=== PATIENT | male | born 1935 | race Caucasian/White ===

== ENCOUNTER 2017-07-09 13:59 | Inpatient (IN) | payer MEDICARE, OTHER ==
[2017-07-09] MEDS: NovoLOG Insulin SQ SCH (18:16)
[2017-07-09] MEDS: Coumadin 2.5 MG PO SCH (18:16)
[2017-07-09] MEDS: Flomax 0.4 MG PO SCH (21:54)
[2017-07-09] MEDS: Lopressor 25MG Tab PO SCH (21:55)
[2017-07-09] MEDS: Cordarone 200 MG PO SCH (21:55)
[2017-07-09] MEDS: Pepcid 20 MG PO SCH (21:55)
[2017-07-10] MEDS: NORCO 7.5/325 MG TAB PO PRN ×3 (01:55→16:53)
[2017-07-10 05:55] LABS: INR 1.39 (0.8-3.0)
[2017-07-10] MEDS: NovoLOG Insulin SQ SCH ×3 (08:01→16:53)
[2017-07-10] MEDS: Lopressor 25MG Tab PO SCH ×2 (09:09→21:13)
[2017-07-10] MEDS: Pepcid 20 MG PO SCH ×2 (09:09→21:13)
[2017-07-10] MEDS: Cordarone 200 MG PO SCH ×2 (09:09→21:13)
[2017-07-10] MEDS: ZOCOR 20MG PO SCH (09:09)
[2017-07-10] MEDS: ECOTRIN 81 MG PO SCH (09:09)
[2017-07-10] MEDS: Flomax 0.4 MG PO SCH ×2 (09:09→21:13)
[2017-07-10] MEDS: Lantus Insulin SQ SCH (09:09)
[2017-07-10] MEDS: Zestril 10 MG PO SCH (09:09)
--- NOTE | 2017-07-10 09:39 | PCM.HP ---
History of Present Illness - Chief Complaint Chief Complaint: Deconditioning r/t CABG x4, left harvest leg. History of Present Illness: is a 81 year old male with CABG x 4 postop day #8 today here for rehab. pain is controlled, no chest pain or shortness of breath. He feels weak but otherwise has no other new complaints. - Review of Systems Constitutional: Weakness, No Fever, No Chills Respiratory: No Cough, No Short Of Breath Cardiac: No Chest Pain, No Edema, No Syncope Abdominal/Gastrointestinal: No Abdominal Pain, No Nausea, No Vomiting, No Diarrhea Genitourinary Symptoms: No Dysuria Skin: No Rash All Other Systems: Reviewed and Negative Medications & Allergies Home Medications: Home Medication List Lisinopril 10 mg [Zestril 10 MG] 10 mg PO DAILY 07/04/14 [History Confirmed 07/09/17] Ranitidine HCl [Zantac] 150 mg PO BID 07/04/14 [History Confirmed 07/09/17] Tamsulosin HCl 0.4 mg [Flomax 0.4 MG] 1 cap PO BID 07/04/14 [History Confirmed 07/09/17] Hydrocodone Bit/Acetaminophen [[place] 7.5-325 Tablet] 1 each PO Q4HPRN PRN #0 tablet 07/06/14 [Rx Confirmed 07/09/17] Aspirin [Aspirin EC] 81 mg PO DAILY 03/17/15 [History Confirmed 07/09/17] Amiodarone HCl 200 mg [Cordarone 200 MG] 200 mg PO BID 07/09/17 [History Confirmed 07/09/17] Atorvastatin Calcium [Lipitor] 40 mg PO DAILY 07/09/17 [History Confirmed ] Insulin Aspart [NovoLOG Insulin] 0 unit SQ UD PRN 07/09/17 [History Confirmed 07/09/17] Insulin Aspart [NovoLOG Insulin] 12 units SQ TIDWM 07/09/17 [History Confirmed 07/09/17] Insulin Detemir [Levemir] 35 unit SQ DAILY 07/09/17 [History Confirmed 07/09/17] Metoprolol Tartrate 25 mg [Lopressor 25MG Tab] 12.5 mg PO BID 07/09/17 [ History Confirmed 07/09/17] Warfarin Sodium 2.5 mg [Coumadin 2.5 MG] 2.5 mg PO DAILY 07/09/17 [ History Confirmed 07/09/17] Allergies/Adverse Reactions: Allergies Allergy/AdvReac Type Severity Reaction Status Date / Time No Known Drug Allergies Allergy Verified 03/17/15 06:57 - Past Medical History Past Medical History: Yes Neurological History: Peripheral Neuropathy ENT History: Cataracts, Other Cardiac History: Coronary Artery Disease, High Cholesterol, Hypertension Respiratory History: No Pertinent History Endocrine Medical History: Diabetes Type II Musculoskelatal History: Arthritis, Degenerative Disk Disease GI Medical History: Other History: No Pertinent History Pyscho-Social History: No Pertinent History Male Reproductive Disorders: Prostate Problems Comment: several detatched retina both eyes. hiatal hernia - Past Surgical History Past Surgical History: Yes Neuro Surgical History: No Pertinent History Cardiac History: Cardiac Catheterization Respiratory Surgery: No Pertinent History GI Surgical History: Hernia Repair Genitourinary Surgical Hx: No Pertinent History Musculskeletal Surgical Hx: Joint Replacement Male Surgical History: No Pertinent History Other Surgical History: Right hip replaced- june 2014. 1998 bilateral knee replaced. multiple eye surgerys. disc surgery neck and back surgery - Social History Smoking Status: Former smoker How long have you smoked: 30 Exposure to second hand smoke: Yes Alcohol: None Drug Use: none - Physical Exam Vital Signs: Vital Signs - 24 hr Temp Pulse Resp BP Pulse Ox 07/10/17 07:21 97.8 F 82 20 114/68 95 07/09/17 19:50 98.0 F 90 24 132/61 98 07/09/17 16:14 98.0 F 90 20 100/56 94 L 07/09/17 16:04 97.9 F 89 94/54 07/09/17 16:03 97.9 F 89 20 94/54 94 L 07/09/17 15:48 97.9 F 89 20 94/54 94 L General Appearance: no apparent distress, alert Eye Exam: PERRL/EOMI, eyes nml inspection Respiratory Exam: normal breath sounds, lungs clear, No respiratory distress Cardiovascular Exam: regular rate/rhythm, normal heart sounds, normal peripheral pulses, other (sternum with clean dressing dry and intact) Gastrointestinal/Abdomen Exam: soft, normal bowel sounds, No tenderness, No mass Extremity Exam: normal inspection, normal range of motion, pelvis stable Skin Exam: normal color, warm, dry, No rash Results - Labs Lab/Micro Results: Accuchecks Accucheck Value: 130 Lab Results-Last 24 Hours 07/10/17 Range/Units 05:15 PT 16.2 H (8.83-12.87) SECONDS INR 1.39 (0.8-3.0) Accuchecks Accucheck Value: 130 Assessment/Plan (1) Coronary atherosclerosis Current Visit: Yes Status: Acute Code(s): I25.10 - ATHSCL HEART DISEASE OF [place] CORONARY ARTERY W/O ANG PCTRS (2) Status post aorto-coronary artery bypass graft Current Visit: Yes Status: Acute Code(s): Z95.1 - PRESENCE OF AORTOCORONARY BYPASS GRAFT (3) Physical deconditioning Current Visit: No Status: Acute Code(s): R53.81 - OTHER MALAISE (4) SWING BED Current Visit: No Status: Acute
[2017-07-10] MEDS ORDERED: INSULIN DETEMIR 35 UNIT SQ SCH (10:00)
[2017-07-10] MEDS ORDERED: Aplisol ID SCH (10:00)
[2017-07-10] MEDS ORDERED: LIPITOR 40MG PO SCH (10:00)
[2017-07-10] MEDS: Coumadin 2.5 MG PO SCH (16:53)
[2017-07-11] MEDS: NovoLOG Insulin SQ SCH ×3 (07:49→17:32)
[2017-07-11] MEDS: Zestril 10 MG PO SCH (08:46)
[2017-07-11] MEDS: Flomax 0.4 MG PO SCH ×2 (08:46→21:35)
[2017-07-11] MEDS: Pepcid 20 MG PO SCH ×2 (08:46→21:35)
[2017-07-11] MEDS: ECOTRIN 81 MG PO SCH (08:46)
[2017-07-11] MEDS: Cordarone 200 MG PO SCH ×2 (08:46→21:35)
[2017-07-11] MEDS: Lopressor 25MG Tab PO SCH ×2 (08:46→21:35)
[2017-07-11] MEDS: ZOCOR 20MG PO SCH (08:47)
[2017-07-11] MEDS: Lantus Insulin SQ SCH (08:49)
[2017-07-11 10:13] LABS: INR 1.35 (0.8-3.0)
[2017-07-11] MEDS: Coumadin 2.5 MG PO SCH (17:24)
[2017-07-11] MEDS: NovoLOG Insulin SQ PRN (21:35)
[2017-07-12] MEDS: NORCO 7.5/325 MG TAB PO PRN (00:35)
[2017-07-12 06:26] LABS: INR 1.3 (0.8-3.0)
[2017-07-12] MEDS: NovoLOG Insulin SQ SCH ×2 (07:59→11:49)
--- NOTE | 2017-07-12 08:44 | PCM.NOTE ---
Date and Time: 07/12/17 0843 Subjective Assessment: patient is doing well, c/o some constipation. pain well controlled, no other problems or concerns. Objective Exam General Appearance: no apparent distress, alert Respiratory Exam: normal breath sounds, lungs clear, No respiratory distress Cardiovascular Exam: regular rate/rhythm, normal heart sounds Gastrointestinal/Abdomen Exam: soft, No tenderness, No mass Extremity Exam: normal inspection, normal range of motion OBJECTIVE DATA Vital Signs: Vital Signs - 24 hr Temp Pulse Resp BP Pulse Ox 07/12/17 08:00 98.6 F 80 18 124/60 93 L 07/11/17 20:02 97.7 F 80 26 H 157/73 97 Pain Assessment - Last Documented Pain Intensity 0 Pain Scale Used 0-10 Pain Scale Intake and Output: Intake & Output 07/09/17 07/10/17 07/11/17 07/12/17 11:59 11:59 11:59 11:59 Intake Total 1450 1860 1380 Output Total 9266 140 4306 Balance 150 1360 180 Weight 128.8 kg 128.9 kg 128.9 kg Lab Results: Accuchecks Accucheck Value: 151 Accucheck Value: 221 Accucheck Value: 99 Accucheck Value: 52 Accucheck Value: 128 Lab Results-Last 24 Hours 07/11/17 07/12/17 Range/Units 09:45 05:30 PT 15.8 H 15.2 H (8.83-12.87) SECONDS INR 1.35 1.30 (0.8-3.0) Multi-Disciplinary Progress Notes: Multi-Disciplinary Progress Notes 07/11/17 12:30 (created 07/11/17 13:34) Case Management Note by Octavia Pompa SPOKE WITH PATIENT REGARDING ANY NEW CONCERNS OR NEEDS AT THIS TIME. PATIENT DENIES ANY. 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 The INR today is 1.35. We recommend increasing the dose to 3mg daily, which is a 15% increase on the weekly dosage. There is also an interaction with amiodarone to be aware of. Martha CallD Candidate Initialized on 07/11/17 11:17 - END OF NOTE Assessment/Plan (1) Coronary atherosclerosis Current Visit: Yes Status: Acute Code(s): I25.10 - ATHSCL HEART DISEASE OF [place] CORONARY ARTERY W/O ANG PCTRS (2) Status post aorto-coronary artery bypass graft Current Visit: Yes Status: Acute Assessment & Plan: add colace, increase warfarin to 4mg daily Code(s): Z95.1 - PRESENCE OF AORTOCORONARY BYPASS GRAFT (3) Physical deconditioning Current Visit: No Status: Acute Code(s): R53.81 - OTHER MALAISE (4) SWING BED Current Visit: No Status: Acute
[2017-07-12] MEDS: ECOTRIN 81 MG PO SCH (11:42)
[2017-07-12] MEDS: Pepcid 20 MG PO SCH ×2 (11:42→22:06)
[2017-07-12] MEDS: Colace 100 MG PO SCH ×2 (11:42→22:05)
[2017-07-12] MEDS: ZOCOR 20MG PO SCH (11:42)
[2017-07-12] MEDS: Zestril 10 MG PO SCH (11:42)
[2017-07-12] MEDS: Flomax 0.4 MG PO SCH ×2 (11:42→22:05)
[2017-07-12] MEDS: Lopressor 25MG Tab PO SCH ×2 (11:43→22:06)
[2017-07-12] MEDS: Cordarone 200 MG PO SCH ×2 (11:43→22:06)
[2017-07-12] MEDS: Lantus Insulin SQ SCH (11:50)
[2017-07-12] MEDS ORDERED: Coumadin 3 MG PO SCH (18:00)
[2017-07-12] MEDS: Coumadin 2 MG PO SCH (18:16)
[2017-07-13] MEDS: Lopressor 25MG Tab PO SCH ×2 (09:26→21:54)
[2017-07-13] MEDS: Cordarone 200 MG PO SCH ×2 (09:26→21:55)
[2017-07-13] MEDS: PROZAC 10 MG PO SCH (09:26)
[2017-07-13] MEDS: Flomax 0.4 MG PO SCH ×2 (09:26→21:54)
[2017-07-13] MEDS: Pepcid 20 MG PO SCH ×2 (09:26→21:55)
[2017-07-13] MEDS: ZOCOR 20MG PO SCH (09:27)
[2017-07-13] MEDS: ECOTRIN 81 MG PO SCH (09:27)
[2017-07-13] MEDS: Colace 100 MG PO SCH ×2 (09:27→21:54)
[2017-07-13] MEDS: Zestril 10 MG PO SCH (09:27)
[2017-07-13] MEDS: Lantus Insulin SQ SCH (09:28)
[2017-07-13] MEDS ORDERED: PROZAC 10 MG PO SCH (10:00)
[2017-07-13 10:05] LABS: INR 1.4 (0.8-3.0)
[2017-07-13] MEDS: Coumadin 2 MG PO SCH (17:34)
[2017-07-14 05:36] LABS: INR 1.51 (0.8-3.0)
[2017-07-14] MEDS: ZOCOR 20MG PO SCH (08:00)
[2017-07-14] MEDS: Lopressor 25MG Tab PO SCH ×2 (08:01→21:10)
[2017-07-14] MEDS: PROZAC 10 MG PO SCH (08:01)
[2017-07-14] MEDS: Flomax 0.4 MG PO SCH ×2 (08:01→21:10)
[2017-07-14] MEDS: Zestril 10 MG PO SCH (08:01)
[2017-07-14] MEDS: ECOTRIN 81 MG PO SCH (08:02)
[2017-07-14] MEDS: Colace 100 MG PO SCH ×2 (08:02→21:10)
[2017-07-14] MEDS: Cordarone 200 MG PO SCH ×2 (08:02→21:10)
[2017-07-14] MEDS: Lantus Insulin SQ SCH (08:02)
[2017-07-14] MEDS: Pepcid 20 MG PO SCH ×2 (08:02→21:10)
[2017-07-14] MEDS: NORCO 7.5/325 MG TAB PO PRN (08:02)
[2017-07-14] MEDS: DULCOLAX 5 MG PO PRN (08:40)
[2017-07-14] MEDS: Coumadin 2 MG PO SCH (17:52)
[2017-07-14] MEDS: NovoLOG Insulin SQ PRN (21:32)
[2017-07-15] MEDS: Cordarone 200 MG PO SCH ×2 (09:08→21:41)
[2017-07-15] MEDS: Flomax 0.4 MG PO SCH ×2 (09:08→21:41)
[2017-07-15] MEDS: ECOTRIN 81 MG PO SCH (09:08)
[2017-07-15] MEDS: Zestril 10 MG PO SCH (09:08)
[2017-07-15] MEDS: Pepcid 20 MG PO SCH ×2 (09:08→21:43)
[2017-07-15] MEDS: Colace 100 MG PO SCH ×2 (09:08→21:41)
[2017-07-15] MEDS: ZOCOR 20MG PO SCH (09:08)
[2017-07-15] MEDS: PROZAC 10 MG PO SCH (09:08)
[2017-07-15] MEDS: Lantus Insulin SQ SCH (09:09)
[2017-07-15] MEDS: Lopressor 25MG Tab PO SCH ×2 (09:09→21:41)
[2017-07-15 10:47] LABS: INR 1.68 (0.8-3.0)
[2017-07-15] MEDS: Coumadin 5 MG PO SCH (17:09)
[2017-07-15] MEDS: NovoLOG Insulin SQ PRN (21:43)
[2017-07-16 06:03] LABS: INR 1.86 (0.8-3.0)
[2017-07-16] MEDS: Cordarone 200 MG PO SCH ×2 (09:15→21:48)
[2017-07-16] MEDS: DULCOLAX 5 MG PO PRN (09:15)
[2017-07-16] MEDS: Pepcid 20 MG PO SCH ×2 (09:15→21:50)
[2017-07-16] MEDS: Flomax 0.4 MG PO SCH ×2 (09:15→21:49)
[2017-07-16] MEDS: Zestril 10 MG PO SCH (09:16)
[2017-07-16] MEDS: Colace 100 MG PO SCH ×2 (09:16→21:48)
[2017-07-16] MEDS: PROZAC 10 MG PO SCH (09:16)
[2017-07-16] MEDS: ZOCOR 20MG PO SCH (09:16)
[2017-07-16] MEDS: Lopressor 25MG Tab PO SCH ×2 (09:16→21:49)
[2017-07-16] MEDS: ECOTRIN 81 MG PO SCH (09:16)
[2017-07-16] MEDS: Lantus Insulin SQ SCH (09:18)
[2017-07-16] MEDS: Coumadin 5 MG PO SCH (17:09)
[2017-07-16] MEDS: NovoLOG Insulin SQ PRN (21:50)
[2017-07-17] MEDS: Flomax 0.4 MG PO SCH ×2 (08:25→21:43)
[2017-07-17] MEDS: Colace 100 MG PO SCH ×2 (08:25→21:43)
[2017-07-17] MEDS: Pepcid 20 MG PO SCH ×2 (08:26→21:43)
[2017-07-17] MEDS: Cordarone 200 MG PO SCH ×2 (08:26→21:43)
[2017-07-17] MEDS: PROZAC 10 MG PO SCH (08:26)
[2017-07-17] MEDS: ZOCOR 20MG PO SCH (08:26)
[2017-07-17] MEDS: Zestril 10 MG PO SCH (08:26)
[2017-07-17] MEDS: Lantus Insulin SQ SCH (08:27)
[2017-07-17] MEDS: ECOTRIN 81 MG PO SCH (08:27)
[2017-07-17] MEDS: Lopressor 25MG Tab PO SCH ×2 (08:29→21:44)
[2017-07-17] MEDS: NovoLOG Insulin SQ PRN ×2 (11:49→21:44)
[2017-07-17] MEDS: Coumadin 5 MG PO SCH (18:15)
[2017-07-18 06:16] LABS: INR 1.95 (0.8-3.0)
[2017-07-18] MEDS: PROZAC 10 MG PO SCH (09:26)
[2017-07-18] MEDS: ECOTRIN 81 MG PO SCH (09:26)
[2017-07-18] MEDS: Colace 100 MG PO SCH ×2 (09:26→22:35)
[2017-07-18] MEDS: Cordarone 200 MG PO SCH ×2 (09:26→22:34)
[2017-07-18] MEDS: Lopressor 25MG Tab PO SCH ×2 (09:26→22:34)
[2017-07-18] MEDS: Zestril 10 MG PO SCH (09:27)
[2017-07-18] MEDS: Pepcid 20 MG PO SCH ×2 (09:28→22:34)
[2017-07-18] MEDS: Flomax 0.4 MG PO SCH ×2 (09:28→22:34)
[2017-07-18] MEDS: ZOCOR 20MG PO SCH (09:28)
[2017-07-18] MEDS: Lantus Insulin SQ SCH (09:31)
[2017-07-18] MEDS: TYLENOL 325 MG PO PRN ×2 (13:40→22:33)
[2017-07-18] MEDS: Coumadin 5 MG PO SCH (18:10)
[2017-07-18] MEDS: NovoLOG Insulin SQ PRN (22:35)
[2017-07-19 06:17] LABS: INR 2.12 (0.8-3.0)
[2017-07-19] MEDS: PROZAC 10 MG PO SCH (08:14)
[2017-07-19] MEDS: Pepcid 20 MG PO SCH ×2 (08:15→22:19)
[2017-07-19] MEDS: ZOCOR 20MG PO SCH (08:15)
[2017-07-19] MEDS: Flomax 0.4 MG PO SCH ×2 (08:15→22:19)
[2017-07-19] MEDS: Cordarone 200 MG PO SCH ×2 (08:16→22:20)
[2017-07-19] MEDS: Colace 100 MG PO SCH ×2 (08:17→22:20)
[2017-07-19] MEDS: Lopressor 25MG Tab PO SCH ×2 (08:17→22:19)
[2017-07-19] MEDS: ECOTRIN 81 MG PO SCH (08:17)
[2017-07-19] MEDS: Lantus Insulin SQ SCH (08:18)
[2017-07-19] MEDS: Zestril 10 MG PO SCH (08:18)
--- NOTE | 2017-07-19 08:54 | PCM.NOTE ---
Date and Time: 07/19/17 0849 Subjective Assessment: patient is doing well at this time, participating in therapy Objective Exam General Appearance: no apparent distress, alert Skin Exam: normal color, warm, dry Respiratory Exam: normal breath sounds, lungs clear, No respiratory distress Cardiovascular Exam: regular rate/rhythm, normal heart sounds, other (incision well approximated) Gastrointestinal/Abdomen Exam: soft, No tenderness, No mass OBJECTIVE DATA Vital Signs: Vital Signs - 24 hr Temp Pulse Resp BP Pulse Ox 07/19/17 07:26 98.1 F 72 18 142/68 95 07/18/17 20:08 97.6 F 65 17 165/68 94 L Pain Assessment - Last Documented Pain Intensity 0 Pain Scale Used 0-10 Pain Scale Intake and Output: Intake & Output 07/16/17 07/17/17 07/18/17 07/19/17 11:59 11:59 11:59 11:59 Intake Total 1740 1700 1680 1540 Output Total 1375 300 200 Balance 365 1400 1680 1340 Weight 124.7 kg 123 kg 122.4 kg 122.8 kg Lab Results: Accuchecks Date 07/18/17 Time 22:00 Accucheck Value: 272 Accucheck Value: 189 Accucheck Value: 184 Lab Results-Last 24 Hours 07/19/17 Range/Units 05:25 PT 24.8 H (8.83-12.87) SECONDS INR 2.12 (0.8-3.0) Assessment/Plan (1) Coronary atherosclerosis Current Visit: Yes Status: Acute Code(s): I25.10 - ATHSCL HEART DISEASE OF [place] CORONARY ARTERY W/O ANG PCTRS (2) Status post aorto-coronary artery bypass graft Current Visit: Yes Status: Acute Code(s): Z95.1 - PRESENCE OF AORTOCORONARY BYPASS GRAFT (3) Physical deconditioning Current Visit: No Status: Acute Assessment & Plan: doing well at this time Code(s): R53.81 - OTHER MALAISE (4) SWING BED Current Visit: No Status: Acute
[2017-07-19] MEDS: NovoLOG Insulin SQ PRN ×2 (13:13→22:22)
[2017-07-19] MEDS: TYLENOL 325 MG PO PRN (16:55)
[2017-07-19] MEDS: Coumadin 5 MG PO SCH (19:20)
[2017-07-20] MEDS: TYLENOL 325 MG PO PRN ×3 (02:01→16:58)
[2017-07-20 06:48] LABS: INR 2.34 (0.8-3.0)
[2017-07-20] MEDS: ZOCOR 20MG PO SCH (08:24)
[2017-07-20] MEDS: PROZAC 10 MG PO SCH (08:24)
[2017-07-20] MEDS: Colace 100 MG PO SCH ×2 (08:24→22:32)
[2017-07-20] MEDS: Flomax 0.4 MG PO SCH ×2 (08:24→22:32)
[2017-07-20] MEDS: Pepcid 20 MG PO SCH ×2 (08:25→22:32)
[2017-07-20] MEDS: ECOTRIN 81 MG PO SCH (08:25)
[2017-07-20] MEDS: Lopressor 25MG Tab PO SCH ×2 (08:25→22:29)
[2017-07-20] MEDS: Zestril 10 MG PO SCH (08:25)
[2017-07-20] MEDS: Cordarone 200 MG PO SCH ×2 (08:26→22:29)
[2017-07-20] MEDS: Lantus Insulin SQ SCH (08:26)
[2017-07-20] MEDS: Coumadin 5 MG PO SCH (18:24)
[2017-07-20] MEDS: NovoLOG Insulin SQ PRN (22:36)
[2017-07-21] MEDS: DULCOLAX 5 MG PO PRN (03:48)
[2017-07-21] MEDS: TYLENOL 325 MG PO PRN (03:48)
[2017-07-21 06:30] LABS: INR 2.26 (0.8-3.0)
[2017-07-21] MEDS: Lopressor 25MG Tab PO SCH ×2 (09:23→22:27)
[2017-07-21] MEDS: PROZAC 10 MG PO SCH (09:23)
[2017-07-21] MEDS: ZOCOR 20MG PO SCH (09:24)
[2017-07-21] MEDS: Pepcid 20 MG PO SCH ×2 (09:24→22:27)
[2017-07-21] MEDS: Flomax 0.4 MG PO SCH ×2 (09:24→22:27)
[2017-07-21] MEDS: Cordarone 200 MG PO SCH ×2 (09:25→22:27)
[2017-07-21] MEDS: ECOTRIN 81 MG PO SCH (09:25)
[2017-07-21] MEDS: Colace 100 MG PO SCH ×2 (09:25→22:27)
[2017-07-21] MEDS: Zestril 10 MG PO SCH (09:25)
[2017-07-21] MEDS ORDERED: Aplisol ID SCH (10:00)
[2017-07-21] MEDS: Lantus Insulin SQ SCH (10:23)
[2017-07-21] MEDS: NovoLOG Insulin SQ PRN ×2 (11:52→22:29)
[2017-07-21] MEDS: Coumadin 5 MG PO SCH (17:07)
[2017-07-22] MEDS: Flomax 0.4 MG PO SCH (10:02)
[2017-07-22] MEDS: Lopressor 25MG Tab PO SCH (10:02)
[2017-07-22] MEDS: PROZAC 10 MG PO SCH (10:03)
[2017-07-22] MEDS: ZOCOR 20MG PO SCH (10:03)
[2017-07-22] MEDS: Colace 100 MG PO SCH (10:03)
[2017-07-22] MEDS: Pepcid 20 MG PO SCH (10:03)
[2017-07-22] MEDS: Cordarone 200 MG PO SCH (10:04)
[2017-07-22] MEDS: Zestril 10 MG PO SCH (10:04)
[2017-07-22] MEDS: Lantus Insulin SQ SCH (10:04)
[2017-07-22] MEDS: ECOTRIN 81 MG PO SCH (10:04)
[2017-07-22] MEDS: Coumadin 5 MG PO SCH (17:23)
[2017-07-23] MEDS: Pepcid 20 MG PO SCH ×3 (00:01→22:45)
[2017-07-23] MEDS: Flomax 0.4 MG PO SCH ×3 (00:01→22:44)
[2017-07-23] MEDS: Lopressor 25MG Tab PO SCH ×3 (00:01→22:44)
[2017-07-23] MEDS: Cordarone 200 MG PO SCH ×3 (00:01→22:44)
[2017-07-23] MEDS: Colace 100 MG PO SCH ×3 (00:01→22:44)
[2017-07-23] MEDS: NovoLOG Insulin SQ PRN ×2 (00:02→22:45)
[2017-07-23] MEDS: ECOTRIN 81 MG PO SCH (10:37)
[2017-07-23] MEDS: ZOCOR 20MG PO SCH (10:37)
[2017-07-23] MEDS: PROZAC 10 MG PO SCH (10:37)
[2017-07-23] MEDS: Zestril 10 MG PO SCH (10:38)
[2017-07-23] MEDS: Lantus Insulin SQ SCH (10:38)
[2017-07-23] MEDS: TYLENOL 325 MG PO PRN ×2 (10:57→22:46)
[2017-07-23] MEDS: Coumadin 5 MG PO SCH (20:32)
--- NOTE | 2017-07-24 08:17 | PCM.NOTE ---
Date and Time: 07/24/17 0816 Subjective Assessment: doing well today, saw his surgeon yesterday and INR was 2.4 in the office. overall feels good, no concerns or problems voiced today Objective Exam General Appearance: no apparent distress, alert Skin Exam: normal color, warm, dry Respiratory Exam: normal breath sounds, lungs clear, No respiratory distress Cardiovascular Exam: regular rate/rhythm, normal heart sounds Gastrointestinal/Abdomen Exam: soft, No tenderness, No mass Extremity Exam: normal inspection, normal range of motion OBJECTIVE DATA Vital Signs: Vital Signs - 24 hr Temp Pulse Resp BP Pulse Ox 07/24/17 07:41 98.1 F 71 18 110/58 97 Pain Assessment - Last Documented Pain Intensity 0 Pain Scale Used FLACC Intake and Output: Intake & Output 07/21/17 07/22/17 07/23/17 07/24/17 11:59 11:59 11:59 11:59 Intake Total 1220 1700 960 480 Output Total 650 2100 700 650 Balance 570 -400 260 -170 Weight 122.9 kg 122.6 kg 122.4 kg 121.1 kg Lab Results: Accuchecks Date 07/23/17 Date 07/23/17 Time 22:00 Time 11:30 Accucheck Value: 329 Accucheck Value: 168 Assessment/Plan (1) Coronary atherosclerosis Current Visit: Yes Status: Acute Code(s): I25.10 - ATHSCL HEART DISEASE OF [place] CORONARY ARTERY W/O ANG PCTRS (2) Status post aorto-coronary artery bypass graft Current Visit: Yes Status: Acute Code(s): Z95.1 - PRESENCE OF AORTOCORONARY BYPASS GRAFT (3) Physical deconditioning Current Visit: No Status: Acute Assessment & Plan: doing well at this time Code(s): R53.81 - OTHER MALAISE (4) SWING BED Current Visit: No Status: Acute
[2017-07-24] MEDS: Pepcid 20 MG PO SCH ×2 (09:42→21:26)
[2017-07-24] MEDS: ZOCOR 20MG PO SCH (09:42)
[2017-07-24] MEDS: Lantus Insulin SQ SCH (09:43)
[2017-07-24] MEDS: ECOTRIN 81 MG PO SCH (09:43)
[2017-07-24] MEDS: Cordarone 200 MG PO SCH ×2 (09:43→21:26)
[2017-07-24] MEDS: Flomax 0.4 MG PO SCH ×2 (09:43→21:26)
[2017-07-24] MEDS: Colace 100 MG PO SCH ×2 (09:43→21:26)
[2017-07-24] MEDS: Lopressor 25MG Tab PO SCH ×2 (09:43→21:26)
[2017-07-24] MEDS: PROZAC 10 MG PO SCH (09:43)
[2017-07-24] MEDS: Zestril 10 MG PO SCH (09:43)
[2017-07-24] MEDS: NovoLOG Insulin SQ PRN ×2 (11:47→21:26)
[2017-07-24] MEDS: Coumadin 5 MG PO SCH (18:26)
[2017-07-24 21:39] VITALS: O2SAT 96
[2017-07-25 06:25] LABS: INR 2.93 (0.8-3.0)
[2017-07-25 07:14] VITALS: BP 139/62; PULSE 57
--- NOTE | 2017-07-25 08:28 | PCM.DS ---
Discharge Summary Date of Admission: 07/09/17 15:43 Admitting Physician: POLO MA Primary Care Provider: MIRNA VILLELA Allergies Allergies No Known Drug Allergies Allergy (Verified 03/17/15 06:57) Hospital Summary - Hospital Course Hospital Course: patient came for swingbed visit, doing well status post CABG. on warfarin and INR has been stable, was 2.4 when he saw his cardiac surgeon in followup on . pain is well controlled and he feels good. he has participated in therapy and is felt stable to discharge home at this time. - Vitals & Intake/Output Vital Signs: Vital Signs Temperature 98 F 07/25/17 07:13 Pulse Rate 57 L 07/25/17 07:13 Respiratory Rate 20 07/25/17 07:13 Blood Pressure 139/62 07/25/17 07:13 O2 Sat by Pulse Oximetry 96 07/25/17 07:13 Intake & Output: Intake & Output 07/22/17 07/23/17 07/24/17 07/25/17 11:59 11:59 11:59 11:59 Intake Total 1700 746 517 3574 Output Total 2100 834 002 1507 Balance -400 260 -170 -10 Weight 122.6 kg 122.4 kg 121.1 kg 121 kg - Lab Lab Results-Last 24 Hrs: Accuchecks Date 07/24/17 Time 21:45 Accucheck Value: 297 Accucheck Value: 104 Accucheck Value: 256 Lab Results-Last 24 Hours 07/25/17 Range/Units 05:37 PT 34.5 H (8.83-12.87) SECONDS INR 2.93 (0.8-3.0) Micro Results-Entire Visit: Accuchecks Date 07/24/17 Time 21:45 Accucheck Value: 297 Accucheck Value: 104 Accucheck Value: 256 - Procedures and Test Procedures and Tests throughout Hospitalization: Therapy Orders & Screens 07/09/17 16:13 PT Eval & Treat ( Order) ROUTINE Reason for Eval:: Deconditioning Diagnosis: Deconditioning r/t CABG x4, left harvest leg. Discharge Exam General Appearance: no apparent distress, alert Skin Exam: normal color, warm, dry Eye Exam: PERRL, EOMI, eyes nml inspection Cardiovascular Exam: regular rate/rhythm, normal heart sounds, other (well healing midline chest incision and lower smaller incisions from tubes clean, dry and intact) Extremity Exam: other (left medial thigh well healed small incision, clean and dry) Final Diagnosis/Problem List - Final Discharge Diagnosis/Problem (1) Coronary atherosclerosis Current Visit: Yes Status: Acute (2) Status post aorto-coronary artery bypass graft Current Visit: Yes Status: Acute (3) Physical deconditioning Current Visit: No Status: Acute (4) SWING BED Current Visit: No Status: Acute - Discharge Disposition: Home, Self-Care Condition: Stable Prescriptions: New Warfarin Sodium 5 mg [Coumadin 5 MG] 5 mg PO DAILY@1800 #100 tablet Fluoxetine HCl 10 mg [Prozac 10 mg] 10 mg PO DAILY #30 tablet Continue Tamsulosin HCl 0.4 mg [Flomax 0.4 MG] 1 cap PO BID Ranitidine HCl [Zantac] 150 mg PO BID Lisinopril 10 mg [Zestril 10 MG] 10 mg PO DAILY Aspirin [Aspirin EC] 81 mg PO DAILY Metoprolol Tartrate 25 mg [Lopressor 25MG Tab] 12.5 mg PO BID Atorvastatin Calcium [Lipitor] 40 mg PO DAILY Amiodarone HCl 200 mg [Cordarone 200 MG] 200 mg PO BID Hydrocodone Bit/Acetaminophen [[place] 7.5-325 Tablet] 1 each PO Q4HPRN PRN # 30 tablet MDD 6 PRN Reason: right hip pain Changed Insulin Detemir [Levemir] 20 unit SQ DAILY #5 vial Discontinued Warfarin Sodium 2.5 mg [Coumadin 2.5 MG] 2.5 mg PO DAILY Insulin Aspart [NovoLOG Insulin] 0 unit SQ UD PRN PRN Reason: Hyperglycemia Insulin Aspart [NovoLOG Insulin] 12 units SQ TIDWM Additional Instructions: Please keep following appointments - [facility] Coumadin [facility] 07/23/2017 at 2:00 PM Sundeep MURILLO with chest x-ray 07/23/2017 at 2:[address] José Manuel Garcia at [facility] 08/09/2017 at 9:30 AM resume metformin and glipizide po meds for diabetes as previously taken along with Levemir Follow up with: MIRNA VILLELA MD [Primary Care Provider] - 1 Week
[2017-07-25] MEDS: Lopressor 25MG Tab PO SCH (09:17)
[2017-07-25] MEDS: PROZAC 10 MG PO SCH (09:18)
[2017-07-25] MEDS: ECOTRIN 81 MG PO SCH (09:18)
[2017-07-25] MEDS: Cordarone 200 MG PO SCH (09:18)
[2017-07-25] MEDS: Zestril 10 MG PO SCH (09:18)
[2017-07-25] MEDS: ZOCOR 20MG PO SCH (09:18)
[2017-07-25] MEDS: Flomax 0.4 MG PO SCH (09:18)
[2017-07-25] MEDS: Pepcid 20 MG PO SCH (09:18)
[2017-07-25] MEDS: Colace 100 MG PO SCH (09:18)
[2017-07-25] MEDS: Lantus Insulin SQ SCH (09:18)
[2017-07-25] MEDS: NovoLOG Insulin SQ PRN (11:32)
== END 2017-07-25 15:00 | disposition home or self-care (01) | DRG 303 ==
LOC: MED SURG 15:43
PROVIDERS: ADMIT Internal Medicine; ATTEND Family Medicine
DX: I25.810 Atherosclerosis of coronary artery bypass graft(s) without angina pectoris (principal); R53.81 Other malaise; E11.9 Type 2 diabetes mellitus without complications; Z79.4 Long term (current) use of insulin; Z79.01 Long term (current) use of anticoagulants; Z79.899 Other long term (current) drug therapy; Z95.1 Presence of aortocoronary bypass graft
CPT/HCPCS: 36415; 82947; 83036; 85610; 97110-GP; A9270-GY